=== PATIENT | male | born 1985 ===

== ENCOUNTER 2018-12-18 16:13 | Emergency (ER) | payer SELFPAY ==
[2018-12-18] MEDS ORDERED: Tobramycin 0.3% OPHT SOLN OU STA (18:19)
--- NOTE | 2018-12-18 18:30 | ED PDOC ---
HPI: Eye Injury/Pain Time Seen by Provider: 12/18/18 17:57 Chief Complaint (Nursing): Eye Problem Chief Complaint (Provider): Eye Problem History Per: Patient History/Exam Limitations: no limitations Onset/Duration Of Symptoms: Days Current Symptoms Are (Timing): Still Present Additional Complaint(s): Morgan Chang is a 33 year old male with no past medical history who is presenting to the ED for evaluation of bilateral eye redness onset 4 days ago. Patient states that eyes are slightly itchy with no crusting or pus discharge. He admits that symptoms are not improving with over the counter eye drops. He also reports 3 days of throat pain but denies any fevers, cough, headache or dizziness. Patient also denies any vision change, ear pain or nausea/vomiting. He states that he does not wear glasses or contacts and offers no other medical complaints at this time. PMD: none provided Past Medical History Reviewed: Historical Data, Nursing Documentation, Vital Signs - Medical History PMH: No Chronic Diseases - Surgical History Surgical History: No Surg Hx - Family History Family History: States: Unknown Family Hx - Social History Current smoker - smoking cessation education provided: No Alcohol: None Drugs: Denies - Home Medications Home Medications: Ambulatory Orders Medication Instructions Recorded RX: Amoxicillin 875 mg PO BID #14 tablet 12/18/18 RX: Ibuprofen [Motrin Tab] 800 mg PO Q8 PRN #21 tab 12/18/18 RX: Tobramycin 0.3% [Tobrex 0.3% 1 drop OU Q6 #1 bottle 12/18/18 Ophth Soln] - Allergies Allergies/Adverse Reactions: Allergies Allergy/AdvReac Type Severity Reaction Status Date / Time No Known Allergies Allergy Verified 12/18/18 18:08 Review of Systems ROS Statement: Except As Marked, All Systems Reviewed And Found Negative Constitutional: Negative for: Fever Eyes: Positive for: Redness. Negative for: Vision Change ENT: Positive for: Throat Pain. Negative for: Ear Pain Respiratory: Negative for: Cough Gastrointestinal: Negative for: Nausea, Vomiting Neurological: Negative for: Headache Physical Exam - Reviewed Nursing Documentation Reviewed: Yes Vital Signs Reviewed: Yes - Physical Exam Comments: GENERAL APPEARANCE: Patient is awake, alert, oriented x 3, in no acute distress. Resting comfortably. HEENT: (-) facial swelling and erythema, (-) facial blisters. LIDS & LASHES: Normal. (-) crusting PUPILS: Equal and reactive. EYE ORBIT: (-) periorbital tenderness, edema, erythema. VISUAL ACUITY: Left 20/20. Right 20/15. Bilateral 20/20. EOM's: Intact and painless LID EVERSION: (-) foreign body. CONJUNCTIVAE: (+) faint bilateral injection (-) chemosis ANTERIOR CHAMBER: (-) hyphema. ENT: TMs non-bulging, non-erythematous. Pharynx: clear, uvula midline (+) Bilateral tonsillar erythema and exudates. 3+ tonsillar hypertrophy. Nares patent. (-) sinus tenderness HEART: regular rate and rhythm LUNGS: No respiratory distress. Normal breath sounds. Medical Decision Making Medical Decision Making: Time: 18:15 Impression: tonsillitis, conjunctivitis Plan: --Amoxicillin 500 mg PO --Tobrex 1 drop OU --Toradol 30 mg IM --Throat Culture --Rapid Strep 1954 Rapid Strep: negative On re-evaluation, patient reports improvement of symptoms. On exam, patient remains AAOx3, in no acute distress. Vitals stable. Lab/Diagnostic results d/w the patient in great detail. Diagnosis of tonsillitis, conjunctivitis d/w the patient. Based on history, exam and diagnostic results, plan will be for outpatient follow up with clinic/ophtho. Patient instructed to follow-up with pmd / referral provided / the clinic in 1- 2 days without fail. Advised to take medication as prescribed. Return to the emergency room at any time for any new or worsening symptoms. Patient states he fully agrees with and understands discharge instructions. States that he agrees with the plan and disposition. Verbalized and repeated discharge instructions and plan. I have given the patient opportunity to ask any additional questions. -- Scribe Attestation: Documented by, Carla Kumar acting as a scribe for Vanesa Avery PA-C. Provider Scribe Attestation: All medical record entries made by the Scribe were at my direction and personal ly dictated by me. I have reviewed the chart and agree that the record accurately reflects my personal performance of the history, physical exam, medical decision making, and the department course for this patient. I have also personally directed, reviewed, and agree with the discharge instructions and disposition. Disposition - Clinical Impression Clinical Impression: Conjunctivitis, Tonsillitis, Throat pain in adult, Redness of both eyes - Patient ED Disposition Is Patient to be Admitted: No Counseled Patient/Family Regarding: Studies Performed, Diagnosis, Need For Followup, Rx Given - Disposition Referrals: Tirso Mckeon MD [Staff Provider] - [facility] [Outside] Disposition: Routine/Home Disposition Time: 19:55 Condition: STABLE Additional Instructions: La atencin mdica de emergencia que recibi hoy se dirigi a ab sntomas agudos. Si le recetaron algn medicamento, llnelo y tmelo segn las indicaciones. Los sntomas pueden tardar varios vargas en resolverse. Regrese al Departamento de Emergencias si ab sntomas empeoran, no mejoran o si tiene otros problemas. Comunquese con candelario mdico dentro de 2 vargas para felix nueva evaluacin y ruba un seguimiento o llame a veronica de los mdicos / clnicas a los que mccartney sido referido y que figuran en el formulario de Informacin de visita al paciente que se incluye en candelario paquete de neela. Lleve todos los documentos que le entregaron al momento del neela junto con todos los medicamentos que est tomando para candelario visita de seguimiento. Nuestro tratamiento no puede reemplazar la atencin mdica continua por parte de un proveedor de atencin primaria (PCP) fuera del departamento de emergencias. Prescriptions: RX: Amoxicillin 875 mg PO BID #14 tablet RX: Ibuprofen [Motrin Tab] 800 mg PO Q8 PRN #21 tab PRN Reason: Pain, Moderate (4-7) RX: Tobramycin 0.3% [Tobrex 0.3% Ophth Soln] 1 drop OU Q6 #1 bottle Instructions: Sore Throat in Adults, Conjunctivitis ([place]), How to Use Eye Drops Forms: [employer] (Turkmen), [facility] ED School/Work Excuse Print Language: ANDORRAN - MARCOS Present On Arrival: None Results - Lab Results Lab Results: 12/18/18 18:55 Grp A Beta Strep Ag Negative
[2018-12-18 18:31] VITALS: BP 115/75; PULSE 70; RESP 18; TEMP 98.5; O2SAT 99
== END 2018-12-18 20:08 | disposition home or self-care (01) ==
LOC: H.ER 16:13
DX: J03.90 Acute tonsillitis, unspecified (principal); H10.9 Unspecified conjunctivitis
CPT/HCPCS: 87070; 87430; 96372; 99284; J1885